=== PATIENT | female | born 1995 | race Asian ===

== ENCOUNTER 2019-12-23 20:49 | Emergency (ER) | payer SELFPAY ==
[~2019-12-23] VITALS: Ht 154.9 cm; Wt 68.0 kg
[2019-12-23 21:15] VITALS: BP 116/64
[2019-12-23] MEDS ORDERED: Ketorolac 30mg Inj IV ONE (21:30)
[2019-12-23 22:14] LABS: BASOPHILS % (AUTO) 0.7 % (0.0-2.0); EOSINOPHILS % (AUTO) 2.1 % (0.0-3.0); HEMOGLOBIN 13.5 G/DL (12.0-16.0); LYMPHOCYTES % (AUTO) 22.9 % (20.0-45.0); MEAN CORPUSCULAR VOLUME 86 FL (80-99); MONOCYTES % (AUTO) 6.1 % (1.0-10.0); NEUTROPHILS % (AUTO) 68.2 % (45.0-75.0); PLATELET COUNT 337 K/UL (150-450); RED BLOOD COUNT 4.68 M/UL (4.20-5.40); RED CELL DISTRIBUTION WIDTH 13.1 % (11.6-14.8)
[2019-12-23 22:23] LABS: APPEARANCE,URINE SLIGHTLY CLOUDY; BILIRUBIN, URINE NEGATIVE (NEGATIVE); GLUCOSE, URINE (UA) NEGATIVE (NEGATIVE); KETONES,URINE NEGATIVE (NEGATIVE); LEUKOCYTE ESTERASE ,URINE 1+ (NEGATIVE); NITRITE,URINE NEGATIVE (NEGATIVE); PH,URINE 5 (4.5-8.0); PROTEIN,URINE 3+ (NEGATIVE); UROBILINOGEN,URINE NORMAL MG/DL (0.0-1.0)
[2019-12-23 22:27] LABS: COLOR,URINE RED
[2019-12-23 22:32] LABS: ANION GAP 12 mmol/L (5-15); BLOOD UREA NITROGEN 12 mg/dL (7-18); CALCIUM 8.9 MG/DL (8.5-10.1); CARBON DIOXIDE 25 MMOL/L (21-32); CHLORIDE 103 MMOL/L (98-107); CREATININE 0.8 MG/DL (0.55-1.30); POTASSIUM 3.5 MMOL/L (3.5-5.1); SODIUM 140 MMOL/L (136-145)
--- NOTE | 2019-12-23 22:32 | Emergency Room Report ---
History of Present Illness General Chief Complaint: Abdominal Pain Present Illness HPI Patient is a 24-year-old female presents for increased abdominal pain. Patient reports having increased pain to the left lower abdomen. Reports having sharp pain sudden onset. Prior history of polycystic ovary disease. Denies any recent trauma. Had not been vomiting. Reports having been near her menses but had not been having any bleeding at this point. Denies any fever. Denies similar symptoms in the past. Patient states he is not sexually active and is not . (Errol Melendez MD) Allergies: Coded Allergies: No Known Allergies (Unverified , 12/23/19) COVID-19 Screening Contact w/high risk pt: No Experienced COVID-19 symptoms?: No COVID-19 Testing performed SURGICAL ASSISTANT CERTIFIED: No (Errol Melendez MD) Patient History Past Medical History: see triage record Last Menstrual Period: 10/2019 Reviewed Nursing Documentation: PMH: Agreed; PSxH: Agreed (Errol Melendez MD) Review of Systems All Other Systems: negative except mentioned in HPI (Errol Mleendez MD) Physical Exam Vital Signs Date Time Temp Pulse Resp B/P (MAP) Pulse Ox O2 Delivery O2 Flow Rate FiO2 12/23/19 20:59 98.8 83 22 116/64 (81) 98 Room Air Sp02 EP Interpretation: reviewed, normal General Appearance: normal inspection, no apparent distress, alert, GCS 15, non-toxic, mild distress Head: atraumatic ENT: normal ENT inspection, hearing grossly normal, normal voice Neck: normal inspection, full range of motion, supple, no bony tend Respiratory: normal inspection, lungs clear, normal breath sounds, no respiratory distress, no retraction, no wheezing Cardiovascular #1: regular rate, rhythm, no edema Gastrointestinal: normal inspection, normal bowel sounds, non tender, soft, no guarding, no hernia Genitourinary: no CVA tenderness, other - Suprapubic tenderness Musculoskeletal: normal inspection, back normal, normal range of motion Neurologic: alert, motor strength/tone normal, 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 Differential diagnosis include was not limited to ruptured ovarian cyst, appendicitis, torsion among others. Because of complexity of patient's case laboratory tests and imaging studies were ordered. Patient presented with what appears to be left-sided abdominal pain. Does not have any evidence of . Pelvic ultrasound was ordered to evaluate for possible ovarian cyst rupture, laboratory testing was notable for some elevation of the white blood count. Urinalysis showed some blood but does not show definite infection.Patient was endorsed to Dr. Garza pending ultrasound imaging. Labs Test 12/23/19 22:00 White Blood Count 15.0 K/UL (4.8-10.8) Red Blood Count 4.68 M/UL (4.20-5.40) Hemoglobin 13.5 G/DL (12.0-16.0) Hematocrit 40.0 % (37.0-47.0) Mean Corpuscular Volume 86 FL (80-99) Mean Corpuscular Hemoglobin 28.8 PG (27.0-31.0) Mean Corpuscular Hemoglobin Concent 33.7 G/DL (32.0-36.0) Red Cell Distribution Width 13.1 % (11.6-14.8) Platelet Count 337 K/UL (150-450) Mean Platelet Volume 7.8 FL (6.5-10.1) Neutrophils (%) (Auto) 68.2 % (45.0-75.0) Lymphocytes (%) (Auto) 22.9 % (20.0-45.0) Monocytes (%) (Auto) 6.1 % (1.0-10.0) Eosinophils (%) (Auto) 2.1 % (0.0-3.0) Basophils (%) (Auto) 0.7 % (0.0-2.0) Urine Color Red Urine Appearance Slightly cloudy Urine pH 5 (4.5-8.0) Urine Specific [place] 1.005 (1.005-1.035) Urine Protein 3+ (NEGATIVE) Urine Glucose (UA) Negative (NEGATIVE) Urine Ketones Negative (NEGATIVE) Urine Blood 5+ (NEGATIVE) Urine Nitrite Negative (NEGATIVE) Urine Bilirubin Negative (NEGATIVE) Urine Urobilinogen Normal MG/DL (0.0-1.0) Urine Leukocyte Esterase 1+ (NEGATIVE) Urine HCG, Qualitative Negative (NEGATIVE) (Errol Melendez MD) ER Course She is signed out to me. Patient has a history of polycystic ovarian disease. She presents with suprapubic pain. Urinalysis showed UTI. Ultrasound pending and was signed out to me. Ultrasound was read by certified medical technician. There is no free fluid. There is no evidence of any hemorrhagic cyst. (Jarred Garza MD) CT/MRI/US Diagnostic Results CT/MRI/US Diagnostic Results : Imaging Test Ordered: pelvic ultrasound Impression Read by radiologist. No free fluid. (Jarred Garza MD) Last Vital Signs Date Time Temp Pulse Resp B/P (MAP) Pulse Ox O2 Delivery O2 Flow Rate FiO2 12/23/19 20:59 98.8 83 22 116/64 (81) 98 Room Air Status: improved (Errol Melendez MD) Disposition: HOME, SELF-CARE Condition: Stable Scripts Ibuprofen* (MOTRIN*) 600 Mg Tablet 600 MG ORAL Q8H PRN for FOR PAIN, #30 TAB 0 Refills Prov: Errol Melendez MD 12/23/19 Cephalexin* (KEFLEX*) 500 Mg Capsule 500 MG ORAL EVERY 6 HOURS, #28 CAP Prov: Errol Melendez MD 12/23/19 Referrals: NOT CHOSEN IPA/,REFERRING (PCP) Errol Melendez MD Dec 23, 2019 22:32 Jarred Garza MD Dec 23, 2019 23:16
[2019-12-23 22:36] LABS: ALANINE AMINOTRANSFERASE 19 U/L (12-78); ALBUMIN 4.5 G/DL (3.4-5.0); ALKALINE PHOSPHATASE 84 U/L (46-116); ASPARTATE AMINO TRANSFERASE 18 U/L (15-37); BILIRUBIN,TOTAL 0.3 MG/DL (0.2-1.0)
[2019-12-23] MEDS ORDERED: IBUPROFEN600 M1 ORAL (22:45)
[2019-12-23] MEDS ORDERED: cefTRIAXone 1 GM in NS 55 ML IVPB ONE (22:45)
[2019-12-23] MEDS ORDERED: CEPHALEXIN500 MG ORAL (22:45)
--- NOTE | 2019-12-23 23:39 | Diagnostic Imaging Report ---
EXAM: US Pelvis Transabdominal, Complete CLINICAL HISTORY: ABD PAIN TECHNIQUE: Real-time complete transabdominal pelvic ultrasound with image documentation. COMPARISON: None. FINDINGS: Uterus/cervix: The uterus measures 6.2 x 5.0 x 3.0 cm. The endometrium measures 5.1 mm. No myometrial mass. Right ovary: The right ovary measures 1.6 x 1.3 x 2.7 cm. Normal blood flow. Left ovary: The left ovary measures 3.5 x 1.5 x 2.0 cm. Normal blood flow. Free fluid: No free fluid. Bladder: Unremarkable as visualized. Wall is normal thickness for degree of distention. IMPRESSION: Unremarkable female pelvis ultrasound.
[2019-12-24 00:05] VITALS: BP 115/66
== END 2019-12-24 00:05 | disposition home or self-care (01) ==
LOC: EMR 21:25
DX: N30.00 Acute cystitis without hematuria (principal); R10.2 Pelvic and perineal pain
CPT/HCPCS: 36415; 76856; 80053; 81003; 81025; 83690; 85025; 85610; 85730; 87086; 96365; 96375; 99284; J0696; J1885; J7040